=== PATIENT | female | born 1950 | race Caucasian/White ===

== ENCOUNTER 2019-06-25 17:44 | Observation (INO) | payer MEDICARE, OTHER ==
[~2019-06-25] VITALS: Ht 157.5 cm; Wt 89.1 kg
[2019-06-25 18:19] LABS: BASOPHILS ABSOLUTE AUTO 0.04 K/mm3 (0.00-0.23); BASOPHILS PERCENT AUTO 1 % (0-2); EOSINOPHILS ABSOLUTE AUTO 0.13 K/mm3 (0.00-0.68); EOSINOPHILS PERCENT AUTO 2 % (0-6); Hematocrit 40.7 % (33.0-51.0); IMMATURE GRAN ABSOLUTE AUTO 0.01 K/mm3 (0.00-0.10); IMMATURE GRAN PERCENT AUTO 0 % (0-1); LYMPHOCYTES ABSOLUTE AUTO 3.58 K/mm3 (0.84-5.20); LYMPHOCYTES PERCENT AUTO 47 % (21-46); MONOCYTES ABSOLUTE AUTO 0.46 K/mm3 (0.16-1.47); MONOCYTES PERCENT AUTO 6 % (4-13); Mean Corpuscular HGB 30.7 pg (26.0-34.0); Mean Corpuscular HGB Conc 34.4 g/dL (31.5-36.5); Mean Corpuscular Volume 89 fL (80-100); Mean Platelet Volume 9.2 fL (9.1-12.4); NEUTROPHILS PERCENT AUTO 45 % (41-73); Platelet Count 371 K/mm3 (150-400); RDW Coefficient Variation 12.5 % (11.7-14.2); RDW Standard Deviation 40.7 fL (35.1-46.3); Red Blood Cell Count 4.56 M/mm3 (3.80-5.20); White Blood Cell Count 7.62 K/mm3 (4.00-11.30)
[2019-06-25 18:42] LABS: Troponin I <0.015 ng/mL (0.000-0.040)
[2019-06-25 18:47] LABS: Alanine Aminotransfer (ALT/SGP 38 U/L (12-78); Albumin, Blood 4.3 g/dL (3.4-5.0); Albumin/Globulin Ratio 1.2 (0.8-1.8); Alk Phos 92 U/L (50-136); Anion Gap 7 mmol/L (6-16); Aspartate Aminotrans (AST/SGOT 27 U/L (12-37); Bilirubin, Total 0.7 mg/dL (0.1-1.0); Blood Urea Nitrogen 18 mg/dL (8-24); Bun/Creatinine Ratio 27.3 (12.0-20.0); CO2, Blood 28 mmol/L (21-32); Calcium, Blood 10.9 mg/dL (8.5-10.1); Chloride, Blood 103 mmol/L (98-108); Creatinine, Blood 0.66 mg/dL (0.40-1.00); Globulin, Blood 3.5 g/dL (2.2-4.0); Glomerular Filtration Rate >60 (60-); Glucose, Blood 100 mg/dL (70-99); Sodium, Blood 138 mmol/L (136-145); Total Protein, Blood 7.8 g/dL (6.4-8.2)
[2019-06-25] MEDS ORDERED: Neurontin 100100 MG PO (20:59)
[2019-06-25] MEDS ORDERED: BUPR100 PO (20:59)
[2019-06-25] MEDS ORDERED: LORA1 PO (21:00)
[2019-06-25] MEDS ORDERED: ARIPIPRAZOLE5 MG PO (21:00)
[2019-06-25] MEDS ORDERED: LEVO-T112 MCG PO (21:00)
[2019-06-25] MEDS ORDERED: LORA.5 PO (21:32)
[2019-06-25] MEDS ORDERED: Aspirin EC81 MG PO (21:33)
[2019-06-25] MEDS ORDERED: OMEP20ER PO (21:34)
[2019-06-25] MEDS ORDERED: Flonase 0.05% N16 GM (21:35)
[2019-06-25] MEDS ORDERED: C-1000 WITH R1000 MG PO (21:35)
[2019-06-25] MEDS ORDERED: MUCINEX D ER 61 EACH PO (21:36)
[2019-06-25] MEDS ORDERED: Biotin1 MG PO (21:37)
[2019-06-25] MEDS ORDERED: RED YEAST RICE600 MG PO (21:38)
[2019-06-25] MEDS ORDERED: FISH OIL 1,2001 EAC1 PO (21:38)
[2019-06-25] MEDS ORDERED: Esgic Tablet1 EACH PO (21:39)
[2019-06-26 04:35] LABS: Hematocrit 38.2 % (33.0-51.0); Hemoglobin 12.9 g/dL (11.5-16.0); Mean Corpuscular HGB 30.4 pg (26.0-34.0); Mean Corpuscular HGB Conc 33.8 g/dL (31.5-36.5); Mean Corpuscular Volume 90 fL (80-100); Mean Platelet Volume 9.2 fL (9.1-12.4); Platelet Count 293 K/mm3 (150-400); RDW Coefficient Variation 12.4 % (11.7-14.2); RDW Standard Deviation 40.6 fL (35.1-46.3); Red Blood Cell Count 4.24 M/mm3 (3.80-5.20); White Blood Cell Count 6.38 K/mm3 (4.00-11.30)
[2019-06-26 05:00] LABS: Alanine Aminotransfer (ALT/SGP 34 U/L (12-78); Albumin, Blood 3.7 g/dL (3.4-5.0); Albumin/Globulin Ratio 1.2 (0.8-1.8); Alk Phos 83 U/L (50-136); Anion Gap 8 mmol/L (6-16); Aspartate Aminotrans (AST/SGOT 24 U/L (12-37); Bilirubin, Total 0.8 mg/dL (0.1-1.0); Blood Urea Nitrogen 18 mg/dL (8-24); Bun/Creatinine Ratio 29.8 (12.0-20.0); CO2, Blood 27 mmol/L (21-32); CPK Creatine Kinase 72 U/L (26-193); Chloride, Blood 105 mmol/L (98-108); Creatinine, Blood 0.61 mg/dL (0.40-1.00); Globulin, Blood 3.1 g/dL (2.2-4.0); Glomerular Filtration Rate >60 (60-); Glucose, Blood 133 mg/dL (70-99); Potassium, Blood 3.6 mmol/L (3.5-5.5); Sodium, Blood 140 mmol/L (136-145); Total Protein, Blood 6.8 g/dL (6.4-8.2); Troponin I <0.015 ng/mL (0.000-0.040)
--- NOTE | 2019-06-26 05:51 | NUR ---
SHIFT SUMMARY: PATIENT WAS ADMITTED FOR CHEST PAIN AT 2210. SHE ARRIVED TO THE FLOOR VIA WHEELCHAIR. SHE INDEPENDANTLY TRANSFERRED TO THE BED WITH NO PROBLEMS. SHE HAD HER BELONGINGS AND A PURSE WITH HER. OFFERED TO HAVE HER PURSE LOCKED UP WITH SECURITY SHE DENIED THIS. SHE REPORTED IT WAS SAFE WITH HER. PATIENT CAME IN DUE TO CHEST PAIN THAT STARTED AFTER RETURNING HOME FROM [facility]. SHE STATES THE PAIN IS SHARP AND STABBING, THAT IS ON THE LEFT AND UPPER TOWARDS THE SHOULDER AREA. IT COMES AND GOES BUT HAS LASTED AND NOT GONE AWAY. SHE TOOK ONE OF HER HUSBANDS NITRO PILLS AND IT DID NOT TOUCH IT. SHE ARRIVED AFTER GETTING [facility] DOWN STAIRS. HER TROPONIN LEVELS HAVE BEEN NEGATIVE AND HER TELE HAS BEEN NORMAL SINUS. SHE STILL HAD PAIN OFF AND ON BUT NOTHING SIGNIFICANT. AFTER GETTING GI COCKTAIL SHE IMPROVED. STATES THE PAIN STILL COMES AND GOES BUT NOT BAD OR OFTEN. CALLED MD AROUND ONE DUE TO HER ASKING FOR NIGHT MEDS. THEREFORE MEDS WERE ORDERED AND GIVEN THIS DID NOT HELP HER SLEEP. SHE WAS AWAKE MOST OF THE NIGHT, BUT HAD NO FURTHER COMPLAINTS OF CHEST PAIN. MEDS WERE GIVEN PER EMAR. IV FLUIDS INFUSED WITH NO PROBLEMS. NO OTHER ACUTE CHANGES OCCURRED THIS SHIFT. WILL REPORT TO DAY SHIFT RN.
[2019-06-26 12:48] LABS: CPK Creatine Kinase 71 U/L (26-193); Troponin I <0.015 ng/mL (0.000-0.040)
--- NOTE | 2019-06-26 15:20 | NUR ---
DISCHARGE DISCHARGE MEDICATIONS AND INSTRUCTIONS EXPLAINED TO PATIENT AND PATIENT'S . THEY STATED UNDERSTANDING. FOLLOW UP APPOINTMENT SCHEDULED FOR 07/04/19 AT 1045. BELONGINGS WITH PATIENT. IV REMOVED WIHTOUT DIFFICULTY. PATIETN ABULATED TO PRIVATE VEHICLE.
== END 2019-06-26 15:12 | disposition home or self-care (01) ==
LOC: ER 17:44 → MEDS 17:45 → ER 22:04 → MEDS 22:10
PROVIDERS: Physician Assistant; ADMIT Internal Medicine
DX: R07.89 Other chest pain (principal); F41.8 Other specified anxiety disorders; E03.9 Hypothyroidism, unspecified; Z79.899 Other long term (current) drug therapy
CPT/HCPCS: 36415; 71046; 80053; 82550; 84484; 85025; 85027; 93005; 93010; 96361; 96372; 96374; 99285-25; G0378; J1650; J1885; J7030

== ENCOUNTER → 2019-07-09 | Outpatient (CLI) | payer MEDICARE, OTHER ==
[~2019-07-09] MED LIST: ARIPIPRAZOLE5 MG PO; Aspirin EC81 MG PO; BUPR100 PO; Biotin1 MG PO; C-1000 WITH R1000 MG PO; Esgic Tablet1 EACH PO; FISH OIL 1,2001 EAC1 PO; Flonase 0.05% N16 GM; LEVO-T112 MCG PO; LORA.5 PO; LORA1 PO; MUCINEX D ER 61 EACH PO; Neurontin 100100 MG PO; OMEP20ER PO; RED YEAST RICE600 MG PO
== END | disposition home or self-care (01) ==
LOC: LAB SHORT 07:00 → LAB SRC 07:00
DX: R19.7 Diarrhea, unspecified (principal)
CPT/HCPCS: 87015; 87045; 87046; 87177; 87205; 87209; 87899

== ENCOUNTER 2019-10-14 20:07 | Emergency (ER) | payer MEDICARE, OTHER ==
[~2019-10-14] VITALS: Ht 157.5 cm; Wt 88.0 kg
[~2019-10-14 20:07] MED LIST changes: -LORA1 PO
[2019-10-14] MEDS ORDERED: [UNRECOGNIZED DRUG - OTHER] (20:35)
[2019-10-14] MEDS ORDERED: BIOTIN2500 MCG PO (20:36)
[2019-10-14] MEDS ORDERED: Augmentin 875-1 EACH PO (21:14)
[2019-10-14] MEDS ORDERED: ERYT1OIN RIGHTEYE (21:14)
== END 2019-10-14 21:26 | disposition home or self-care (01) ==
LOC: ER 20:07
DX: S01.152A Open bite of left eyelid and periocular area, initial encounter (principal); S01.112A Laceration without foreign body of left eyelid and periocular area, initial encounter; E03.9 Hypothyroidism, unspecified; Z79.899 Other long term (current) drug therapy; W54.0XXA Bitten by dog, initial encounter
CPT/HCPCS: 12011; 90471; 90714; 99283-25; A9270-GY

== ENCOUNTER → 2019-12-20 | Outpatient (CLI) | payer MEDICARE, OTHER ==
[~2019-12-20] MED LIST changes: +Augmentin 875-1 EACH PO; +BIOTIN2500 MCG PO; +ERYT1OIN RIGHTEYE; +[UNRECOGNIZED DRUG - OTHER]
[2019-12-20 11:46] LABS: Source, Urine Clean Catch
[2019-12-20 13:31] LABS: Bilirubin, Urine Neg (Neg); Blood, Urine Neg (Neg); Glucose Qualitative, Urine Neg (Neg); Ketones, Urine Neg (Neg); Leukocyte Esterase, Urine Neg (Neg); Nitrite, Urine Neg (Neg); Protein, Urine Neg (Neg); Urobilinogen, Urine NORM (Normal)
[2019-12-20 13:48] LABS: Appearance, Urine Clear (Clear); Color, Urine Yellow (P-Yellow)
== END | disposition home or self-care (01) ==
LOC: LAB SRC 11:45 → LAB SHORT 11:45
PROVIDERS: Nurse Practitioner Family
DX: R10.9 Unspecified abdominal pain (principal); Z87.442 Personal history of urinary calculi
CPT/HCPCS: 81003

== ENCOUNTER 2020-04-01 09:35 | Emergency (ER) | payer MEDICARE, OTHER ==
[~2020-04-01] VITALS: Ht 157.5 cm; Wt 89.8 kg
[~2020-04-01 09:35] MED LIST changes: -ABILIFY MYCITE5 M1 PO; -ATOR20 PO; -Aspir 8181 MG PO; -Ativan1 MG; -BUPR150ER PO; -C Complex1000 MG PO; -DULO30 PO; -Fiorinal Capsu1 EACH PO; -Fish Oil Conc1000 MG; -LEVSOD112 PO; -LISI5 PO; -TRAM50 PO; -Voltaren100 GM
[2020-04-01] MEDS ORDERED: BUPR150ER PO (09:52)
[2020-04-01] MEDS ORDERED: LEVSOD112 PO (09:52)
[2020-04-01] MEDS ORDERED: Ativan1 MG (09:53)
[2020-04-01] MEDS ORDERED: ABILIFY MYCITE5 M1 PO (09:54)
[2020-04-01] MEDS ORDERED: Aspir 8181 MG PO (09:55)
[2020-04-01] MEDS ORDERED: C Complex1000 MG PO (09:58)
[2020-04-01] MEDS ORDERED: Flonase 0.05% N16 GM (09:58)
[2020-04-01] MEDS ORDERED: Fiorinal Capsu1 EACH PO (09:59)
[2020-04-01] MEDS ORDERED: Fish Oil Conc1000 MG (10:00)
[2020-04-01] MEDS ORDERED: DULO30 PO (10:01)
[2020-04-01] MEDS ORDERED: OMEP20ER PO (10:01)
[2020-04-01] MEDS ORDERED: ATOR20 PO (10:01)
[2020-04-01] MEDS ORDERED: LISI5 PO (10:01)
[2020-04-01] MEDS ORDERED: Voltaren100 GM (10:02)
[2020-04-01] MEDS ORDERED: TRAM50 PO (10:02)
[2020-04-01 10:20] LABS: BASOPHILS ABSOLUTE AUTO 0.03 K/mm3 (0.00-0.23); BASOPHILS PERCENT AUTO 1 % (0-2); EOSINOPHILS ABSOLUTE AUTO 0.12 K/mm3 (0.00-0.68); EOSINOPHILS PERCENT AUTO 2 % (0-6); Hematocrit 38.3 % (33.0-51.0); Hemoglobin 12.7 g/dL (11.5-16.0); IMMATURE GRAN ABSOLUTE AUTO 0.01 K/mm3 (0.00-0.10); IMMATURE GRAN PERCENT AUTO 0 % (0-1); LYMPHOCYTES ABSOLUTE AUTO 2.04 K/mm3 (0.84-5.20); LYMPHOCYTES PERCENT AUTO 34 % (21-46); MONOCYTES ABSOLUTE AUTO 0.39 K/mm3 (0.16-1.47); MONOCYTES PERCENT AUTO 6 % (4-13); Mean Corpuscular HGB Conc 33.2 g/dL (31.5-36.5); Mean Corpuscular Volume 91 fL (80-100); Mean Platelet Volume 9.4 fL (9.1-12.4); NEUTROPHILS ABSOLUTE AUTO 3.46 K/mm3 (1.96-9.15); NEUTROPHILS PERCENT AUTO 57 % (41-73); Platelet Count 310 K/mm3 (150-400); RDW Coefficient Variation 12.3 % (11.7-14.2); RDW Standard Deviation 40.4 fL (35.1-46.3); Red Blood Cell Count 4.23 M/mm3 (3.80-5.20); White Blood Cell Count 6.05 K/mm3 (4.00-11.30)
[2020-04-01 10:35] LABS: Alanine Aminotransfer (ALT/SGP 36 U/L (12-78); Albumin/Globulin Ratio 1.1 (0.8-1.8); Alk Phos 89 U/L (50-136); Anion Gap 10 mmol/L (6-16); Aspartate Aminotrans (AST/SGOT 30 U/L (12-37); Bilirubin, Total 0.6 mg/dL (0.1-1.0); Blood Urea Nitrogen 14 mg/dL (8-24); Bun/Creatinine Ratio 23.5 (12.0-20.0); CO2, Blood 23 mmol/L (21-32); Calcium, Blood 10.6 mg/dL (8.5-10.1); Chloride, Blood 104 mmol/L (98-108); Globulin, Blood 3.5 g/dL (2.2-4.0); Glomerular Filtration Rate >60 (60-); Glucose, Blood 191 mg/dL (70-99); Potassium, Blood 4.2 mmol/L (3.5-5.5); Sodium, Blood 137 mmol/L (136-145); Total Protein, Blood 7.5 g/dL (6.4-8.2); Troponin I <0.015 ng/mL (0.000-0.040)
== END 2020-04-01 12:05 | disposition home or self-care (01) ==
LOC: ER 09:35
PROVIDERS: Emergency Medicine
DX: R53.1 Weakness (principal); R06.02 Shortness of breath; F31.9 Bipolar disorder, unspecified; E03.9 Hypothyroidism, unspecified; Z88.8 Allergy status to other drugs, medicaments and biological substances; Z79.82 Long term (current) use of aspirin; Z79.899 Other long term (current) drug therapy
CPT/HCPCS: 36415; 71045; 80053; 83690; 83880; 84484; 85025; 93005; 93010; 99285-25

== ENCOUNTER → 2020-04-01 | Outpatient (CLI) | payer MEDICARE, OTHER ==
[~2020-04-01] MED LIST changes: +ABILIFY MYCITE5 M1 PO; +ATOR20 PO; +Aspir 8181 MG PO; +Ativan1 MG; +BUPR150ER PO; +C Complex1000 MG PO; +DULO30 PO; +Fiorinal Capsu1 EACH PO; +Fish Oil Conc1000 MG; +LEVSOD112 PO; +LISI5 PO; +TRAM50 PO; +Voltaren100 GM
[2020-04-01 15:28] LABS: CHOL/HDL RATIO 2.6; Cholesterol 141 mg/dL (50-200); Free Thyroxine 1.32 ng/dL (0.70-1.60); HDL Cholesterol 54 mg/dL (>39); LDL/HDL RATIO 0.6; Low Density Lipoprotein Chol 33 mg/dL (0-110); Triglycerides 269 mg/dL (30-160); Very Low Density Lipoprot Chol 53 mg/dL (6-32)
[2020-04-01 15:32] LABS: Thyroid Stimulating Hormone 0.893 uIU/mL (0.360-4.800)
== END | disposition home or self-care (01) ==
PROVIDERS: Nurse Practitioner Family
DX: Z00.00 Encounter for general adult medical examination without abnormal findings (principal); Z13.6 Encounter for screening for cardiovascular disorders; R53.83 Other fatigue

== ENCOUNTER 2020-06-23 10:38 | Day surgery (SDC) | payer MEDICARE, OTHER ==
[~2020-06-23] VITALS: Ht 157.5 cm; Wt 90.7 kg
[~2020-06-23 10:38] MED LIST changes: +ABILIFY MYCITE5 M1 PO; +ATOR20 PO; +Aspir 8181 MG PO; +Ativan1 MG; +BUPR150ER PO; +C Complex1000 MG PO; +DULO30 PO; +Fiorinal Capsu1 EACH PO; +Fish Oil Conc1000 MG; +LEVSOD112 PO; +LISI5 PO; +METO50ER PO; +OSTERA TABLET1 EAC1 PO; +TRAM50 PO; +TUMS500 MG PO; +Voltaren100 GM
[2020-06-23] MEDS ORDERED: TORS10 (11:19)
[2020-06-23] MEDS ORDERED: NEBI5 (11:39)
== END 2020-06-23 12:44 | disposition home or self-care (01) ==
LOC: ORSCSDS 10:38
PROVIDERS: Internal Medicine Gastroenterology
PROC: 0DBL8ZX Excision of Transverse Colon, Via Natural or Artificial Opening Endoscopic, Diagnostic (ICD-10-PCS; principal; 2020-06-23 12:00)
PROC: 0DBH8ZX Excision of Cecum, Via Natural or Artificial Opening Endoscopic, Diagnostic (ICD-10-PCS; principal; 2020-06-23 12:00)
DX: Z12.11 Encounter for screening for malignant neoplasm of colon (principal); Z86.010 Personal history of colon polyps; D12.0 Benign neoplasm of cecum; D12.3 Benign neoplasm of transverse colon; K64.8 Other hemorrhoids; K57.30 Diverticulosis of large intestine without perforation or abscess without bleeding; I10 Essential (primary) hypertension; E66.9 Obesity, unspecified; Z68.36 Body mass index [BMI] 36.0-36.9, adult; Z79.899 Other long term (current) drug therapy
CPT/HCPCS: 88305; J2704; J7120

== ENCOUNTER → 2021-09-25 | Outpatient (CLI) | payer MEDICARE, OTHER ==
[~2021-09-25] MED LIST changes: +NEBI5; +TORS10
[2021-09-25 17:36] LABS: Appearance, Urine Clear (Clear); Bilirubin, Urine Neg (Neg); Blood, Urine 2+ (Neg); Color, Urine Yellow (P-Yellow); Glucose Qualitative, Urine Neg (Neg); Ketones, Urine Neg (Neg); Leukocyte Esterase, Urine Neg (Neg); Nitrite, Urine Neg (Neg); Protein, Urine Neg (Neg); Specific Gravity, Urine 1.005 (1.003-1.022); Urobilinogen, Urine NORM (Normal)
[2021-09-25 18:14] LABS: Bacteria Rare /hpf; Squamous Epithelial Cells Not Seen /hpf (Few); Transitional Epithelial Cells Few /hpf (0-Rare); White Blood Cells, Urine 0-2 /hpf (0-5)
== END | disposition home or self-care (01) ==
LOC: LAB 14:42 → LAB SHORT 14:42
PROVIDERS: Nurse Practitioner Family
DX: R39.9 Unspecified symptoms and signs involving the genitourinary system (principal)
CPT/HCPCS: 81001

== ENCOUNTER → 2021-10-18 | Outpatient (CLI) | payer MEDICARE, OTHER ==
[2021-10-20 14:32] LABS: C DIFFICILE DNA NEGATIVE (Negative)
== END | disposition home or self-care (01) ==
LOC: LAB SHORT 08:20
PROVIDERS: Nurse Practitioner Family
DX: R19.7 Diarrhea, unspecified (principal)
CPT/HCPCS: 87493

== ENCOUNTER → 2022-07-07 | Outpatient (CLI) | payer MEDICARE, OTHER ==
[2022-07-07 19:30] LABS: BASOPHILS ABSOLUTE AUTO 0.04 K/mm3 (0.00-0.23); BASOPHILS PERCENT AUTO 1 % (0-2); EOSINOPHILS ABSOLUTE AUTO 0.14 K/mm3 (0.00-0.68); EOSINOPHILS PERCENT AUTO 2 % (0-6); Hematocrit 40.7 % (33.0-51.0); Hemoglobin 13.3 g/dL (11.5-16.0); IMMATURE GRAN ABSOLUTE AUTO 0.02 K/mm3 (0.00-0.10); IMMATURE GRAN PERCENT AUTO 0 % (0-1); LYMPHOCYTES ABSOLUTE AUTO 3.12 K/mm3 (0.84-5.20); LYMPHOCYTES PERCENT AUTO 36 % (21-46); MONOCYTES ABSOLUTE AUTO 0.55 K/mm3 (0.16-1.47); MONOCYTES PERCENT AUTO 6 % (4-13); Mean Corpuscular HGB Conc 32.7 g/dL (31.5-36.5); Mean Corpuscular Volume 92 fL (80-100); Mean Platelet Volume 9.4 fL (9.1-12.4); NEUTROPHILS ABSOLUTE AUTO 4.69 K/mm3 (1.96-9.15); NEUTROPHILS PERCENT AUTO 55 % (41-73); Platelet Count 319 K/mm3 (150-400); RDW Coefficient Variation 12.8 % (11.7-14.2); RDW Standard Deviation 42.7 fL (35.1-46.3); Red Blood Cell Count 4.44 M/mm3 (3.80-5.20); White Blood Cell Count 8.56 K/mm3 (4.00-11.30)
[2022-07-07 19:57] LABS: Albumin, Blood 4.3 g/dL (3.4-5.0); Albumin/Globulin Ratio 1.3 (0.8-1.8); Bilirubin, Total 0.9 mg/dL (0.1-1.0); Bun/Creatinine Ratio 22.6 (12.0-20.0); Calcium, Blood 10.8 mg/dL (8.5-10.1); Creatinine, Blood 0.8 mg/dL (0.40-1.00); Globulin, Blood 3.2 g/dL (2.2-4.0); Magnesium, Blood 2.1 mg/dL (1.6-2.4); Potassium, Blood 3.8 mmol/L (3.5-5.5); Total Protein, Blood 7.5 g/dL (6.4-8.2)
== END | disposition home or self-care (01) ==
LOC: LAB SHORT 18:30
PROVIDERS: Nurse Practitioner Family
DX: R42 Dizziness and giddiness (principal)
CPT/HCPCS: 80053; 83735; 85025

== ENCOUNTER 2022-08-19 14:37 | Day surgery (SDC) | payer MEDICARE, OTHER ==
[~2022-08-19 14:37] MED LIST changes: -TORS10; +TORS10 PO
[2022-08-19] MEDS ORDERED: ALBU90OI INH (15:34)
[2022-08-19] MEDS ORDERED: CODEINE-GUAIFE120 M1 PO (15:35)
[2022-08-19] MEDS ORDERED: FARXIGA10 MG PO (15:35)
[2022-08-19] MEDS ORDERED: Voltaren100 GM TOP (15:36)
[2022-08-19] MEDS ORDERED: [UNRECOGNIZED DRUG - OTHER] (15:37)
[2022-08-19] MEDS ORDERED: LOSA25 PO (15:37)
[2022-08-19] MEDS ORDERED: PIOG15 PO (15:38)
[2022-08-19] MEDS ORDERED: PSEUDOEPHEDRINE30 M1 PO (15:39)
[2022-08-19] MEDS ORDERED: Aspir 8181 MG PO (15:39)
[2022-08-19] MEDS ORDERED: MULVITA PO (15:39)
[2022-08-19] MEDS ORDERED: TRULICITY4.5 MG/0.5 SC (15:40)
[2022-08-19] MEDS ORDERED: Niacinamide500 MG PO (15:40)
[2022-08-19] MEDS ORDERED: OMEGA-3 1,0501 EACH PO (15:41)
[2022-08-19] MEDS ORDERED: MIRALAX11910 PO (15:51)
[2022-08-19] MEDS ORDERED: NAPR500 PO (15:52)
[2022-08-19] MEDS ORDERED: SUMA25 PO (15:52)
== END 2022-08-19 16:25 | disposition home or self-care (01) ==
LOC: ATC 14:37
DX: U07.1 COVID-19 (principal); I50.32 Chronic diastolic (congestive) heart failure; E78.2 Mixed hyperlipidemia; Z88.8 Allergy status to other drugs, medicaments and biological substances
CPT/HCPCS: M0222

== ENCOUNTER → 2023-06-23 | Outpatient (CLI) | payer MEDICARE, OTHER ==
[~2023-06-23] MED LIST changes: +ALBU90OI INH; +CODEINE-GUAIFE120 M1 PO; +FARXIGA10 MG PO; +HYDR1TAB94 PO; +LORA2 PO; +LOSA25 PO; +MIRALAX11910 PO; +MULVITA PO; +NAPR500 PO; +Niacinamide500 MG PO; +OMEGA-3 1,0501 EACH PO; +PIOG15 PO; +PSEUDOEPHEDRINE30 M1 PO; +SUMA25 PO; +TRULICITY4.5 MG/0.5 SC; +Voltaren100 GM TOP; +[UNRECOGNIZED DRUG - OTHER]
[2023-06-23 12:58] LABS: Adenovirus F 40/41 Not Detected (NOT DETECT); Astrovirus Not Detected (NOT DETECT); Campylobacter Sp Not Detected (NOT DETECT); Cryptosporidium Not Detected (NOT DETECT); Cyclospora Cayetanensis Not Detected (NOT DETECT); E. Coli O157 Not Detected (NOT DETECT); Entamoeba Histolytica Not Detected (NOT DETECT); Enteroaggregative E. coli-EAEC Not Detected (NOT DETECT); Enteropathogenic E. coli-EPEC Not Detected (NOT DETECT); Enterotoxigenic E. coli-ETEC Not Detected (NOT DETECT); Giardia Lamblia Not Detected (NOT DETECT); Norovirus GI/GII Not Detected (NOT DETECT); Plesiomonas Shigelloides Not Detected (NOT DETECT); Rotavirus A Not Detected (NOT DETECT); Salmonella Sp Not Detected (NOT DETECT); Sapovirus Not Detected (NOT DETECT); Shiga Toxin-prod E. coli-STEC Not Detected (NOT DETECT); Shigella/Enteroin E. coli-EIEC Not Detected (NOT DETECT); Vibrio Cholerae Not Detected (NOT DETECT); Vibrio Sp Not Detected (NOT DETECT); Yersinia Enterocolitica Not Detected (NOT DETECT)
== END ==
LOC: LAB 08:17 → LAB SHORT 08:17
PROVIDERS: Nurse Practitioner Family
DX: R19.7 Diarrhea, unspecified (principal)
CPT/HCPCS: 87507

== ENCOUNTER 2023-07-10 07:48 | Emergency (ER) | payer MEDICARE, OTHER ==
[~2023-07-10] VITALS: Ht 157.5 cm; Wt 89.4 kg
[2023-07-10 08:48] LABS: BASOPHILS ABSOLUTE AUTO 0.03 K/mm3 (0.00-0.23); BASOPHILS PERCENT AUTO 1 % (0-2); EOSINOPHILS ABSOLUTE AUTO 0.19 K/mm3 (0.00-0.68); EOSINOPHILS PERCENT AUTO 3 % (0-6); Hematocrit 35.3 % (33.0-51.0); Hemoglobin 11.9 g/dL (11.5-16.0); IMMATURE GRAN ABSOLUTE AUTO 0.02 K/mm3 (0.00-0.10); IMMATURE GRAN PERCENT AUTO 0 % (0-1); LYMPHOCYTES ABSOLUTE AUTO 2.17 K/mm3 (0.84-5.20); LYMPHOCYTES PERCENT AUTO 38 % (21-46); MONOCYTES ABSOLUTE AUTO 0.61 K/mm3 (0.16-1.47); MONOCYTES PERCENT AUTO 11 % (4-13); Mean Corpuscular HGB 31.4 pg (26.0-34.0); Mean Corpuscular HGB Conc 33.7 g/dL (31.5-36.5); Mean Corpuscular Volume 93 fL (80-100); Mean Platelet Volume 8.9 fL (9.1-12.4); NEUTROPHILS ABSOLUTE AUTO 2.73 K/mm3 (1.96-9.15); NEUTROPHILS PERCENT AUTO 48 % (41-73); Platelet Count 267 K/mm3 (150-400); RDW Coefficient Variation 12.6 % (11.7-14.2); RDW Standard Deviation 42.9 fL (35.1-46.3); Red Blood Cell Count 3.79 M/mm3 (3.80-5.20); White Blood Cell Count 5.75 K/mm3 (4.00-11.30)
[2023-07-10 09:12] LABS: Albumin, Blood 3.8 g/dL (3.4-5.0); Albumin/Globulin Ratio 1.3 (0.8-1.8); Bilirubin, Total 0.6 mg/dL (0.1-1.0); Bun/Creatinine Ratio 19.5 (12.0-20.0); Calcium, Blood 9.9 mg/dL (8.5-10.1); Creatinine, Blood 0.72 mg/dL (0.40-1.00); Globulin, Blood 2.9 g/dL (2.2-4.0); Potassium, Blood 4.8 mmol/L (3.5-5.5); Total Protein, Blood 6.7 g/dL (6.4-8.2)
[2023-07-10 10:42] VITALS: BP 116/97
[2023-07-10 10:56] LABS: Adenovirus F 40/41 Not Detected (NOT DETECT); Astrovirus Not Detected (NOT DETECT); Campylobacter Sp Not Detected (NOT DETECT); Cryptosporidium Not Detected (NOT DETECT); Cyclospora Cayetanensis Not Detected (NOT DETECT); E. Coli O157 Not Detected (NOT DETECT); Entamoeba Histolytica Not Detected (NOT DETECT); Enteroaggregative E. coli-EAEC Not Detected (NOT DETECT); Enteropathogenic E. coli-EPEC Detected (NOT DETECT); Enterotoxigenic E. coli-ETEC Not Detected (NOT DETECT); Giardia Lamblia Not Detected (NOT DETECT); Norovirus GI/GII Not Detected (NOT DETECT); Plesiomonas Shigelloides Not Detected (NOT DETECT); Rotavirus A Not Detected (NOT DETECT); Salmonella Sp Not Detected (NOT DETECT); Sapovirus Not Detected (NOT DETECT); Shiga Toxin-prod E. coli-STEC Not Detected (NOT DETECT); Shigella/Enteroin E. coli-EIEC Not Detected (NOT DETECT); Vibrio Cholerae Not Detected (NOT DETECT); Vibrio Sp Not Detected (NOT DETECT); Yersinia Enterocolitica Not Detected (NOT DETECT)
[2023-07-10] MEDS ORDERED: CIPR500 PO (11:15)
== END 2023-07-10 11:52 | disposition home or self-care (01) ==
LOC: ER 07:48
PROVIDERS: Emergency Medicine
DX: A04.0 Enteropathogenic Escherichia coli infection (principal); E03.9 Hypothyroidism, unspecified; Z88.8 Allergy status to other drugs, medicaments and biological substances; Z88.6 Allergy status to analgesic agent; Z79.82 Long term (current) use of aspirin; Z79.899 Other long term (current) drug therapy
CPT/HCPCS: 80053; 83690; 85025; 87507; 96360; 96361; 99284-25; A9270; J7030

== ENCOUNTER 2023-07-17 06:42 | Emergency (ER) | payer MEDICARE, OTHER ==
[~2023-07-17] VITALS: Ht 157.5 cm; Wt 87.5 kg
[~2023-07-17 06:42] MED LIST changes: +CIPR500 PO
[2023-07-17] MEDS ORDERED: MELO7.5 (07:08)
[2023-07-17] MEDS ORDERED: ZIPRASIDONE HCL PO (07:09)
[2023-07-17 09:21] LABS: BASOPHILS ABSOLUTE AUTO 0.04 K/mm3 (0.00-0.23); BASOPHILS PERCENT AUTO 1 % (0-2); EOSINOPHILS PERCENT AUTO 3 % (0-6); Hematocrit 36.8 % (33.0-51.0); Hemoglobin 12.3 g/dL (11.5-16.0); IMMATURE GRAN ABSOLUTE AUTO 0.01 K/mm3 (0.00-0.10); IMMATURE GRAN PERCENT AUTO 0 % (0-1); LYMPHOCYTES ABSOLUTE AUTO 3.19 K/mm3 (0.84-5.20); LYMPHOCYTES PERCENT AUTO 52 % (21-46); MONOCYTES ABSOLUTE AUTO 0.42 K/mm3 (0.16-1.47); MONOCYTES PERCENT AUTO 7 % (4-13); Mean Corpuscular HGB 31.4 pg (26.0-34.0); Mean Corpuscular HGB Conc 33.4 g/dL (31.5-36.5); Mean Corpuscular Volume 94 fL (80-100); Mean Platelet Volume 9.2 fL (9.1-12.4); NEUTROPHILS ABSOLUTE AUTO 2.29 K/mm3 (1.96-9.15); NEUTROPHILS PERCENT AUTO 37 % (41-73); Platelet Count 332 K/mm3 (150-400); RDW Coefficient Variation 12.4 % (11.7-14.2); RDW Standard Deviation 42.7 fL (35.1-46.3); Red Blood Cell Count 3.92 M/mm3 (3.80-5.20); White Blood Cell Count 6.15 K/mm3 (4.00-11.30)
[2023-07-17 09:34] LABS: Albumin, Blood 3.9 g/dL (3.4-5.0); Albumin/Globulin Ratio 1.3 (0.8-1.8); Bilirubin, Total 0.7 mg/dL (0.1-1.0); Bun/Creatinine Ratio 25.4 (12.0-20.0); Calcium, Blood 10.1 mg/dL (8.5-10.1); Creatinine, Blood 0.75 mg/dL (0.40-1.00); Globulin, Blood 2.9 g/dL (2.2-4.0); Magnesium, Blood 2.5 mg/dL (1.6-2.4); Potassium, Blood 4.1 mmol/L (3.5-5.5); Total Protein, Blood 6.8 g/dL (6.4-8.2)
[2023-07-17 10:58] LABS: Adenovirus F 40/41 Not Detected (NOT DETECT); Astrovirus Not Detected (NOT DETECT); Campylobacter Sp Not Detected (NOT DETECT); Cryptosporidium Not Detected (NOT DETECT); Cyclospora Cayetanensis Not Detected (NOT DETECT); E. Coli O157 Not Detected (NOT DETECT); Entamoeba Histolytica Not Detected (NOT DETECT); Enteroaggregative E. coli-EAEC Not Detected (NOT DETECT); Enteropathogenic E. coli-EPEC Not Detected (NOT DETECT); Enterotoxigenic E. coli-ETEC Not Detected (NOT DETECT); Giardia Lamblia Not Detected (NOT DETECT); Norovirus GI/GII Not Detected (NOT DETECT); Plesiomonas Shigelloides Not Detected (NOT DETECT); Rotavirus A Not Detected (NOT DETECT); Salmonella Sp Not Detected (NOT DETECT); Sapovirus Not Detected (NOT DETECT); Shiga Toxin-prod E. coli-STEC Not Detected (NOT DETECT); Shigella/Enteroin E. coli-EIEC Not Detected (NOT DETECT); Vibrio Cholerae Not Detected (NOT DETECT); Vibrio Sp Not Detected (NOT DETECT); Yersinia Enterocolitica Not Detected (NOT DETECT)
[2023-07-17 11:18] VITALS: BP 115/52
[2023-07-17] MEDS ORDERED: DIPATR PO (11:24)
== END 2023-07-17 11:57 | disposition home or self-care (01) ==
LOC: ER 06:42
PROVIDERS: Physician Assistant
DX: K52.9 Noninfective gastroenteritis and colitis, unspecified (principal); E03.9 Hypothyroidism, unspecified; F31.9 Bipolar disorder, unspecified; F41.9 Anxiety disorder, unspecified; Z88.8 Allergy status to other drugs, medicaments and biological substances; Z88.6 Allergy status to analgesic agent; Z79.899 Other long term (current) drug therapy
CPT/HCPCS: 80053; 83735; 85025; 87507; 96360; 99284-25; A9270; J7030

== ENCOUNTER 2023-07-29 19:29 | Emergency (ER) | payer MEDICARE, OTHER ==
[~2023-07-29] VITALS: Ht 157.5 cm; Wt 88.0 kg
[~2023-07-29 19:29] MED LIST changes: +DIPATR PO; +MELO7.5; +ZIPRASIDONE HCL PO
[2023-07-29 21:27] VITALS: BP 133/59
== END 2023-07-29 23:46 | disposition home or self-care (01) ==
LOC: ER 19:29
DX: M25.562 Pain in left knee (principal); M79.642 Pain in left hand; M79.662 Pain in left lower leg; W18.30XA Fall on same level, unspecified, initial encounter; Z88.8 Allergy status to other drugs, medicaments and biological substances; Z79.899 Other long term (current) drug therapy; E03.9 Hypothyroidism, unspecified; G47.30 Sleep apnea, unspecified; E11.9 Type 2 diabetes mellitus without complications
CPT/HCPCS: 73090; 73120; 73562-LT; 73590; 96372; 99283-25; A9270; J1885

== ENCOUNTER 2023-08-04 06:48 | Emergency (ER) | payer MEDICARE, OTHER ==
[~2023-08-04] VITALS: Ht 157.5 cm; Wt 86.6 kg
[2023-08-04] MEDS ORDERED: LOSARTAN POTASS25 M2 PO (07:41)
[2023-08-04] MEDS ORDERED: NALOXONE HCL4 MG NS (07:41)
[2023-08-04 10:13] VITALS: BP 121/66
== END 2023-08-04 10:13 | disposition home or self-care (01) ==
LOC: ER 06:48
DX: S83.92XA Sprain of unspecified site of left knee, initial encounter (principal); S69.92XA Unspecified injury of left wrist, hand and finger(s), initial encounter; W18.30XA Fall on same level, unspecified, initial encounter; Z88.8 Allergy status to other drugs, medicaments and biological substances; Z79.899 Other long term (current) drug therapy; E03.9 Hypothyroidism, unspecified
CPT/HCPCS: 73700; 99283-25; A9270

== ENCOUNTER 2023-08-12 09:31 | Emergency (ER) | payer MEDICARE, OTHER ==
[~2023-08-12] VITALS: Ht 157.5 cm; Wt 86.2 kg
[~2023-08-12 09:31] MED LIST changes: +LOSARTAN POTASS25 M2 PO; +NALOXONE HCL4 MG NS
[2023-08-12 10:15] VITALS: BP 150/76
[2023-08-12] MEDS ORDERED: Mobic15 MG PO (11:48)
[2023-08-12] MEDS ORDERED: Norco 10-325 T1 EACH PO (11:48)
== END 2023-08-12 12:03 | disposition home or self-care (01) ==
LOC: ER 09:31
DX: M79.642 Pain in left hand (principal); R20.0 Anesthesia of skin; F31.9 Bipolar disorder, unspecified; E03.9 Hypothyroidism, unspecified; F41.9 Anxiety disorder, unspecified; E11.9 Type 2 diabetes mellitus without complications; Z79.899 Other long term (current) drug therapy; Z88.8 Allergy status to other drugs, medicaments and biological substances; Z88.5 Allergy status to narcotic agent
CPT/HCPCS: 99283; A9270

== ENCOUNTER → 2023-09-29 | Outpatient (CLI) | payer MEDICARE ==
[~2023-09-29] MED LIST changes: +Mobic15 MG PO; +Norco 10-325 T1 EACH PO
[2023-09-29 19:00] LABS: Appearance, Urine Clear (Clear); Bilirubin, Urine Neg (Neg); Blood, Urine Neg (Neg); Glucose Qualitative, Urine Neg (Neg); Ketones, Urine Neg (Neg); Leukocyte Esterase, Urine Neg (Neg); Nitrite, Urine Neg (Neg); Protein, Urine Neg (Neg); Specific Gravity, Urine 1.015 (1.003-1.022); Urobilinogen, Urine NORM (Normal)
[2023-09-29 19:09] LABS: Color, Urine Pale Yellow (P-Yellow)
== END ==
LOC: LAB SHORT 12:15 → LAB 12:15
PROVIDERS: Nurse Practitioner Family
DX: N39.0 Urinary tract infection, site not specified (principal); B95.2 Enterococcus as the cause of diseases classified elsewhere
CPT/HCPCS: 81003